=== PATIENT | male | born 2000 | race Caucasian/White ===

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

== ENCOUNTER 2022-02-28 21:49 | Emergency (ER) | payer OTHER ==
[~2022-02-28] VITALS: Ht 162.6 cm; Wt 79.5 kg
[2022-02-28 21:57] VITALS: BP 146/81
== END 2022-03-01 01:07 | disposition left against medical advice (07) ==
LOC: EMS 21:53
DX: J02.9 Acute pharyngitis, unspecified (principal); R13.10 Dysphagia, unspecified; Z53.21 Procedure and treatment not carried out due to patient leaving prior to being seen by health care provider

== ENCOUNTER 2022-03-20 13:40 | Emergency (ER) | payer OTHER ==
[~2022-03-20] VITALS: Ht 162.6 cm; Wt 61.8 kg
[2022-03-20 16:38] VITALS: BP 112/72
== END 2022-03-20 16:40 | disposition home or self-care (01) ==
LOC: EMS 13:57
DX: R07.0 Pain in throat (principal); F41.9 Anxiety disorder, unspecified; F31.9 Bipolar disorder, unspecified; F17.210 Nicotine dependence, cigarettes, uncomplicated; K29.70 Gastritis, unspecified, without bleeding
CPT/HCPCS: 99283; Z7502